=== PATIENT | female | born 1960 | race Caucasian/White ===

== ENCOUNTER 2017-07-22 15:56 | Emergency (ER) | payer SELFPAY ==
[2017-07-22 16:07] VITALS: BP 153/58
[2017-07-22] MEDS ORDERED: ONDANSETRON 4 MG TAB.RAPDIS PO ONE (16:23)
[2017-07-22] MEDS ORDERED: OXYCODONE-ACETAMINOPHEN 5-325 MG TABLET PO ONE (16:23)
--- NOTE | 2017-07-22 16:28 | ER Document Report ---
ED Hand/Wrist Injury - General Chief Complaint: Wrist Pain Stated Complaint: WRIST PAIN Time Seen by Provider: 07/22/17 16:23 Information source: Patient Notes: This 57-year-old female patient comes emergency room with injury to her left wrist. She reports she was at [employer] when someone fell out and knocked her backwards landing on her left hand. She reports she fractured her wrist. This occurred about 2 PM today. The wrist was wrapped tightly to splinted. There were no other injuries. TRAVEL OUTSIDE OF THE [place] IN LAST 30 DAYS: No - Related Data Allergies/Adverse Reactions: No Known Allergies Allergy (Unverified 07/22/17 16:07) Past Medical History - General Information source: Patient - Social History Smoking Status: Never Smoker Cigarette use (# per day): No Chew tobacco use (# tins/day): No Smoking Education Provided: No Frequency of alcohol use: None Drug Abuse: None Family History: Reviewed & Not Pertinent - Medical History Medical History: Negative Past Surgical History: Reports: Hx Gynecologic Surgery - Oophorectomy for ectopic , Hx Hysterectomy - Immunizations Immunizations up to date: Yes Hx Diphtheria, Pertussis, Tetanus Vaccination: Yes Review of Systems - Review of Systems Constitutional: No symptoms reported EENT: No symptoms reported Cardiovascular: No symptoms reported Respiratory: No symptoms reported Gastrointestinal: No symptoms reported Genitourinary: No symptoms reported Female Genitourinary: Post menopausal Musculoskeletal: See HPI Skin: No symptoms reported Hematologic/Lymphatic: No symptoms reported Neurological/Psychological: No symptoms reported Physical Exam - Vital signs Vitals: Temp Pulse Resp BP Pulse Ox 98.2 F 64 18 153/58 H 88 L 07/22/17 16:01 07/22/17 16:01 07/22/17 16:01 07/22/17 16:01 07/22/17 16:01 Interpretation: Normal - General General appearance: Appears well, Alert In distress: None - HEENT Head: Normocephalic, Atraumatic Eyes: Normal Pupils: PERRL Neck: Normal - Respiratory Respiratory status: No respiratory distress - Cardiovascular Rhythm: Regular - Extremities General upper extremity: Other - The left wrist/distal forearm is wrapped quite tightly causing distortion in the tissues. There is swelling proximal and distal to the wrap. The wrist does appear to be slightly angulated. There is sensation and capillary refill to the fingertips General lower extremity: Normal inspection - Neurological Neuro grossly intact: Yes - Psychological Associated symptoms: Normal affect, Normal mood - Skin Skin Temperature: Warm Skin Moisture: Dry Skin Color: Normal Course - Re-evaluation Re-evalutation: 07/22/17 17:49 Sugar tong splint was placed by the PCT on the left wrist and forearm. The sling was placed on the left arm. The splint fits well, it does provide support, stabilization, and comfort. Fingertips are warm with good capillary refill and normal sensation. The sling fits well and supports the weight of the splint. - Vital Signs Vital signs: Temp Pulse Resp BP Pulse Ox 98.2 F 64 18 153/58 H 88 L 07/22/17 16:01 07/22/17 16:01 07/22/17 16:01 07/22/17 16:01 07/22/17 16:01 - Diagnostic Test Radiology reviewed: Image reviewed, Reports reviewed - The left distal radius is somewhat impacted, with dorsal displacement of about 90% or more of the distal radius. Discharge - Discharge Clinical Impression: Distal radius fracture, left Qualifiers: Encounter type: initial encounter Fracture type: closed Fracture morphology: Lita' Qualified Code(s): S52.532A - Colles' fracture of left radius, initial encounter for closed fracture Condition: Stable Disposition: HOME, SELF-CARE Additional Instructions: Fractured Distal Radius: The distal radius is fractured. This type of fracture is typically caused by falling onto the outstretched hand. The fracture will need to be reduced, and then a cast will be placed. For the first few days after the injury, the arm should be elevated and ice packed. Most often, a splint is used first, with a cast later on. Healing takes from four to eight weeks, depending on the age of the patient and the seriousness of the broken bones. Your doctor has explained the treatment plan. It's important that you follow up as instructed to prevent complications. Call the doctor or return at once if severe pain or swelling occur, or if the hand becomes numb, swollen, or discolored. //////////////////////////////////////////////////////////////////////////////// //////////////////////////////////////////////////////////////////////////////// Elevate your hand all the time. Keep the splint clean and dry. Call [facility] tomorrow morning to schedule an appointment for tomorrow. Take the pain medication as needed. RETURN TO THE EMERGENCY ROOM IF ANY NEW OR WORSENING SYMPTOMS. Prescriptions: Oxycodone HCl/Acetaminophen [Percocet 5-325 mg Tablet] 1 - 2 tab PO ASDIR PRN # 15 tablet PRN Reason: Referrals: [facility] ([facility]) [Provider Group] - Follow up tomorrow
[2017-07-22] MEDS ORDERED: ONDANSETRON 4 MG TAB.RAPDIS ONE (16:36)
--- NOTE | 2017-07-22 16:44 | RADIOLOGY REPORT (SQ) ---
EXAM DESCRIPTION: WRIST LEFT 3 VIEWS COMPLETED DATE/TIME: 07/22/2017 4:33 pm REASON FOR STUDY: Pain s/p fall COMPARISON: None. NUMBER OF VIEWS: Three views. TECHNIQUE: AP, lateral, and oblique radiographic images acquired of the left wrist. LIMITATIONS: None. FINDINGS: MINERALIZATION: Normal. BONES: There is an impaction type fracture of the distal radius and I cannot exclude an avulsion type fracture of the ulnar styloid process. No other evidence for fracture is seen. SOFT TISSUES: No soft tissue swelling. No foreign body. OTHER: No other significant finding. IMPRESSION: Impaction type fracture of the distal radius and I cannot exclude an avulsion type fract ure of the ulnar styloid process. TECHNICAL DOCUMENTATION: JOB ID: [id number] [employer]- All Rights Reserved
== END 2017-07-22 18:10 | disposition home or self-care (01) ==
LOC: ER 15:56
PROC: 2W3DX1Z Immobilization of Left Lower Arm using Splint (ICD-10-PCS; principal; 2017-07-22)
DX: S52.532A Colles' fracture of left radius, initial encounter for closed fracture (principal); M25.532 Pain in left wrist; W19.XXXA Unspecified fall, initial encounter
CPT/HCPCS: 99283; 73110; 29125; S0119

== ENCOUNTER 2017-07-25 13:54 | Emergency (ER) | payer SELFPAY ==
[2017-07-25 14:07] VITALS: BP 176/69
--- NOTE | 2017-07-25 15:35 | RADIOLOGY REPORT (SQ) ---
EXAM DESCRIPTION: WRIST LEFT 3 VIEWS COMPLETED DATE/TIME: 07/25/2017 3:17 pm REASON FOR STUDY: left wrist pain COMPARISON: 07/22/2017. NUMBER OF VIEWS: Three views. TECHNIQUE: AP, lateral, and oblique radiographic images acquired of the left wrist. LIMITATIONS: Cast material obscures bony detail. FINDINGS: MINERALIZATION: Normal. BONES: Fracture of the distal radius with dorsal angulation, unchanged. Remainder of the bony struct ures are intact. SOFT TISSUES: No soft tissue swelling. No foreign body. OTHER: No other significant finding. IMPRESSION: NO CHANGE IN APPEARANCE OF THE FRACTURE OF THE DISTAL RADIUS WITH DORSAL ANGULATION. TECHNICAL DOCUMENTATION: JOB ID: [id number] [employer]- All Rights Reserved
[2017-07-25] MEDS ORDERED: OXYCODONE-ACETAMINOPHEN 5-325 MG TABLET PO ONE (15:52)
--- NOTE | 2017-07-25 16:06 | ER Document Report ---
HPI - HPI Patient complains to provider of: Wrist pain Onset: Other - 3 days Onset/Duration: Persistent Quality of pain: Sharp Pain Level: 4 Context: Patient states that she fell 3 days ago fracturing her wrist. Patient was seen here and placed in a splint and advised to follow-up with orthopedic doctor. Patient states she does not have $400 to be seen in the orthopedic doctor's office. Patient denies any new injury. Patient is requesting transfer to another hospital that [facility] so that she can be evaluated. Associated Symptoms: Other - Left wrist injury Exacerbated by: Movement Relieved by: Denies Similar symptoms previously: No Recently seen / treated by doctor: Yes - ROS ROS below otherwise negative: Yes Systems Reviewed and Negative: Yes All other systems reviewed and negative - NEURO Neurology: DENIES: Weakness - MUSCULOSKELETAL Musculoskeletal: REPORTS: Extremity pain, Swelling - DERM Skin Color: Ecchymosis Skin Problems: None Past Medical History - General Information source: Patient - Social History Smoking Status: Never Smoker Frequency of alcohol use: None Drug Abuse: None Occupation: None Lives with: Family Family History: Reviewed & Not Pertinent Patient has suicidal ideation: No Patient has homicidal ideation: No - Medical History Medical History: Negative Renal/ Medical History: Denies: Hx Peritoneal Dialysis Past Surgical History: Reports: Hx Gynecologic Surgery - Oophorectomy for ectopic , Hx Hysterectomy - Immunizations Immunizations up to date: Yes Hx Diphtheria, Pertussis, Tetanus Vaccination: Yes Vertical Provider Document - CONSTITUTIONAL Agree With Documented VS: Yes Exam Limitations: No Limitations General Appearance: WD/WN, No Apparent Distress - INFECTION CONTROL TRAVEL OUTSIDE OF THE [place] IN LAST 30 DAYS: No - HEENT HEENT: Atraumatic, Normocephalic - NECK Neck: Normal Inspection - RESPIRATORY Respiratory: Breath Sounds Normal, No Respiratory Distress O2 Sat by Pulse Oximetry: 96 - CARDIOVASCULAR Cardiovascular: Regular Rate, Regular Rhythm Pulses: Normal: Radial - MUSCULOSKELETAL/EXTREMETIES Musculoskeletal/Extremeties: Tender - Left distal radius tenderness with positive deformity. Patient with ecchymosis to dorsal aspect of left hand with 1+ edema., Edema, Eccymosis - NEURO Level of Consciousness: Awake, Alert, Appropriate Motor/Sensory: No Motor Deficit - DERM Integumentary: Warm, Dry Course - Re-evaluation Re-evalutation: 07/25/17 16:[address]Klanduch Per [facility] protocol. Recommends splinting patient and having her follow-up with orthopedic doctor Consulted with ERIK Ho who is on-call for [facility] for surgery who agrees to see patient in the office today and advises sending her directly over. 07/25/17 16:06 The patient has been informed that they may have pre-hypertension or hypertension based on a blood pressure reading in the emergency department. I recommend that patient call the primary care provider listed on their discharge instructions or a physician of their choice by this week to arrange follow-up for further evaluation of possible pre-hypertension or hypertension. - Vital Signs Vital signs: Temp Pulse Resp BP Pulse Ox 98.2 F 79 17 176/69 H 96 07/25/17 14:05 07/25/17 14:05 07/25/17 14:05 07/25/17 14:05 07/25/17 14:05 - Diagnostic Test Radiology reviewed: Image reviewed, Reports reviewed Procedures - Immobilization Left Wrist Pre-Proc Neuro Vasc Exam: Normal Immobilizer type: Sugar tong Performed by: PCT Post-Proc Neuro Vasc Exam: Normal Alignment checked and good: Yes Discharge - Discharge Clinical Impression: Elevated blood pressure reading Distal radius fracture, left Qualifiers: Encounter type: initial encounter Fracture type: closed Fracture morphology: unspecified fracture morphology Qualified Code(s): S52.502A - Unspecified fracture of the lower end of left radius, initial encounter for closed fracture Condition: Stable Disposition: HOME, SELF-CARE Instructions: Fractured Radius ([facility]), Splint Precautions ([facility]) Additional Instructions: Return immediately for any new or worsening symptoms Follow-up directly with orthopedic doctor today Follow-up with the primary doctor regarding her blood pressure is is is elevated today. Forms: Elevated Blood Pressure Referrals: [facility] ([facility]) [Provider Group] - 07/25/17
== END 2017-07-25 16:26 | disposition home or self-care (01) ==
LOC: ER 13:54
PROC: 2W3DX1Z Immobilization of Left Lower Arm using Splint (ICD-10-PCS; principal; 2017-07-25)
DX: S52.502A Unspecified fracture of the lower end of left radius, initial encounter for closed fracture (principal); R03.0 Elevated blood-pressure reading, without diagnosis of hypertension; W19.XXXA Unspecified fall, initial encounter; Z90.710 Acquired absence of both cervix and uterus
CPT/HCPCS: 99283

== ENCOUNTER 2017-08-29 08:39 | Day surgery (SDC) | payer SELFPAY ==
[~2017-08-29 08:39] MED LIST: CEFAZOLIN 2 GM/D5W RTU 2 GM/50 ML RTUPB IV PRN
[2017-08-29 09:04] LABS: APPEARANCE,URINE CLEAR; BILIRUBIN,URINE NEGATIVE (NEGATIVE); GLUCOSE, URINE NEGATIVE (NEGATIVE); KETONES,URINE NEGATIVE (NEGATIVE); LEUKOCYTE ESTERASE,URINE NEGATIVE (NEGATIVE); NITRITE,URINE NEGATIVE (NEGATIVE); PROTEIN,URINE NEGATIVE (NEGATIVE); URINE SPECIFIC GRAVITY 1.009; UROBILINOGEN,URINE NEGATIVE mg/dL (<2.0)
--- NOTE | 2017-08-29 09:11 | RADIOLOGY REPORT (SQ) ---
EXAM DESCRIPTION: CHEST SINGLE VIEW COMPLETED DATE/TIME: 08/29/2017 9:03 am REASON FOR STUDY: PREOP COMPARISON: None. EXAM PARAMETERS: NUMBER OF VIEWS: One view. TECHNIQUE: Single frontal radiographic view of the chest acquired. RADIATION DOSE: NA LIMITATIONS: None. FINDINGS: LUNGS AND PLEURA: No opacities, masses or pneumothorax. No pleural effusion. MEDIASTINUM AND HILAR STRUCTURES: No masses. Contour normal. HEART AND VASCULAR STRUCTURES: Heart normal in size. Normal vasculature. BONES: No acute findings. HARDWARE: None in the chest. OTHER: No other significant finding. IMPRESSION: NO ACUTE RADIOGRAPHIC FINDING IN THE CHEST. TECHNICAL DOCUMENTATION: JOB ID: [id number] [employer]- All Rights Reserved
[2017-08-29] MEDS ORDERED: BUPIVACAINE HCL 0.25% /EPINEPHRINE INJ/PF 30 ML SDV ONE (09:22)
[2017-08-29 09:26] LABS: HEMATOCRIT 41.5 % (36.0-47.0); HEMOGLOBIN 13.8 g/dL (12.0-15.5); HGB HCT DIFFERENCE -0.1; MEAN CORPUSCULAR HEMOGLOBIN 29.2 pg (27.0-33.4); MEAN CORPUSCULAR HGB CONC 33.3 g/dL (32.0-36.0); MEAN CORPUSCULAR VOLUME 88 fl (80-97); RED BLOOD COUNT 4.73 10^6/uL (3.72-5.28); RED CELL DISTRIBUTION WIDTH 13.3 % (11.5-14.0)
[2017-08-29 09:35] LABS: ANION GAP 9 (5-19); BLOOD UREA NITROGEN 15 mg/dL (7-20); CALCIUM 9.3 mg/dL (8.4-10.2); CARBON DIOXIDE 27 mmol/L (22-30); CHLORIDE 107 mmol/L (98-107); CREATININE RESULT 0.44 mg/dL (0.52-1.25); GLUCOSE 89 mg/dL (75-110); POTASSIUM 4.5 mmol/L (3.6-5.0); SODIUM 142.9 mmol/L (137-145)
[2017-08-29] MEDS ORDERED: FENTANYL CITRATE INJ/PF 100 MCG/2 ML AMPUL ONE ×2 (10:23→11:45)
[2017-08-29] MEDS ORDERED: MIDAZOLAM 2 MG/2 ML INJ ONE (10:24)
[2017-08-29] MEDS ORDERED: ACETAMINOPHEN 100 ML IV ONE (10:24)
[2017-08-29] MEDS ORDERED: PROPOFOL INJ 200 MG/20 ML VIAL IV ONE (10:24)
[2017-08-29] MEDS ORDERED: MEPERIDINE HCL/PF INJ 25 MG/1 ML DISP.SYRIN IV PRN (10:57)
[2017-08-29] MEDS ORDERED: DIPHENHYDRAMINE HCL 50 MG/ML VIAL IV PRN (10:57)
[2017-08-29] MEDS ORDERED: MORPHINE SULFATE 10 MG/ML INJ IV PRN (10:57)
[2017-08-29] MEDS ORDERED: PROMETHAZINE HCL INJ 25 MG/1 ML VIAL IV PRN ×2 (10:57)
[2017-08-29] MEDS ORDERED: FENTANYL CITRATE INJ/PF 100 MCG/2 ML AMPUL IV PRN ×3 (10:57)
[2017-08-29] MEDS ORDERED: OXYCODONE-ACETAMINOPHEN 5-325 MG TABLET PO PRN ×2 (10:57)
--- NOTE | 2017-08-29 11:31 | Operative Report ---
Operative Report DATE OF SURGERY: 08/29/17 PREOPERATIVE DIAGNOSIS: Left distal radial malunion OPERATION: Mobilization of the malunion with a subsequent open reduction internal fixation SURGEON: ANDRY MITCHELL 1ST DERMATOLOGICAL SURGEON: DEJUAN HUBBARD ANESTHESIA: GA ESTIMATED BLOOD LOSS: 25 PROCEDURE: With the patient supine on the operating table the left upper extremity was prepped and draped in a sterile fashion. The limb was elevated for exsanguination tourniquet inflated 280 torr. A standard anterior approach the distal radius is performed between the radial neurovascular bundle and the Leksell carpi radialis tendon. The pronator quadratus is elevated from radial to ulnar. The underlying fracture is identified. It is mobilized using a freer elevator. Under fluoroscopic guidance its reduced to at least a neutral volar tilt as opposed to a negative volar tilt which we started with. There is a slight radial displacement. The reduction is held in place with the radial styloid pin. Subsequently a volar Bogard titanium plate is placed over the anterior radius and is secured with 3 screws distally. This is then used to further reduce the distal radial fracture and affect a near anatomic dorsal volar angulation. 3 screws were then placed proximally. The construct and the fracture reduction again checked fluoroscopically and felt to be adequate. The tourniquet is deflated. The wound is irrigated. Hemostasis obtained with bipolar cautery. The wound was then closed in layers with interrupted Vicryl followed by nylon. A sterile dressing and volar plaster splint were applied and the patient's return to the PACU in satisfactory condition.
[2017-08-29] MEDS ORDERED: MEPERIDINE HCL/PF INJ 25 MG/1 ML DISP.SYRIN ONE (11:45)
[2017-08-29] MEDS: MORPHINE SULFATE 10 MG/ML INJ ONE ×2 (12:08→12:28)
[2017-08-29] MEDS ORDERED: METOCLOPRAMIDE HCL INJ/PF 10 MG/2 ML SDV ONE (12:13)
[2017-08-29] MEDS ORDERED: DEXAMETHASONE SOD PHOSPHATE INJ 4 MG/1 ML VIAL ONE (12:13)
[2017-08-29] MEDS ORDERED: ONDANSETRON HCL INJ/PF 4 MG/2 ML SDV ONE (12:13)
--- NOTE | 2017-08-29 12:49 | RADIOLOGY REPORT (SQ) ---
EXAM DESCRIPTION: NO CHG FLUORO; WRIST LEFT 2 VIEWS COMPLETED DATE/TIME: 08/29/2017 12:25 pm REASON FOR STUDY: ORIF LEFT WRIST ASSISTED WITH FLUORO IN OR COMPARISON: 07/25/2017 FLUOROSCOPY TIME: 35 seconds 2 Images saved to PACS LIMITATIONS: None. PROCEDURE: ORIF left wrist FINDINGS: Images document placement of a compression plate on the volar aspect of the distal radius. IMPRESSION: ORIF left wrist. Refer to operative report for further detail. COMMENT: PQRS 6045F: Fluoroscopy time of the procedure is documented in the report. TECHNICAL DOCUMENTATION: JOB ID: [id number] [employer]- All Rights Reserved
--- NOTE | 2017-08-29 12:49 | RADIOLOGY REPORT (SQ) ---
EXAM DESCRIPTION: NO CHG FLUORO; WRIST LEFT 2 VIEWS COMPLETED DATE/TIME: 08/29/2017 12:25 pm REASON FOR STUDY: ORIF LEFT WRIST ASSISTED WITH FLUORO IN OR COMPARISON: 07/25/2017 FLUOROSCOPY TIME: 35 seconds 2 Images saved to PACS LIMITATIONS: None. PROCEDURE: ORIF left wrist FINDINGS: Images document placement of a compression plate on the volar aspect of the distal radius. IMPRESSION: ORIF left wrist. Refer to operative report for further detail. COMMENT: PQRS 6045F: Fluoroscopy time of the procedure is documented in the report. TECHNICAL DOCUMENTATION: JOB ID: [id number] [employer]- All Rights Reserved
[2017-08-29] MEDS ORDERED: ONDANSETRON 4 MG TAB.RAPDIS PO PRN (12:56)
[2017-08-29] MEDS ORDERED: HYDROCODONE/ACETAMINOPHEN 5-325 MG TABLET PO PRN (12:56)
[2017-08-29] MEDS ORDERED: HYDROCODONE/ACETAMINOPHEN 5-325 MG TABLET ONE (13:03)
--- NOTE | 2017-08-29 13:22 | EKG REPORT ---
SEVERITY:- NORMAL ECG - SINUS RHYTHM : Confirmed by: Milo Post MD 29-Aug-2017 13:22:15
[2017-08-29 14:05] VITALS: BP 139/62
== END 2017-08-29 14:13 | disposition home or self-care (01) ==
LOC: OROUT 08:39
PROVIDERS: ATTEND Orthopaedic Surgery
PROC: 0PSJ04Z Reposition Left Radius with Internal Fixation Device, Open Approach (ICD-10-PCS; principal; 2017-08-29 11:00)
DX: S52.502P Unspecified fracture of the lower end of left radius, subsequent encounter for closed fracture with malunion (principal); W19.XXXD Unspecified fall, subsequent encounter; Z87.891 Personal history of nicotine dependence
CPT/HCPCS: 36415; 85027; 80048; 81001; 71010; 73100; 93005; 93010; 25400; C1769; C1713 ×4; J2250; J3490; J1100; J3010; J2175; J2765; J2270; J2405; J2704; J0690; J0131; 01830